=== PATIENT | male | born 1965 | race Caucasian/White ===

== ENCOUNTER 2019-07-24 06:55 | Day surgery (SDC) | payer BC ==
[~2019-07-24] VITALS: Ht 172.7 cm; Wt 95.6 kg
[2019-07-24 07:39] VITALS: BP 124/85; PULSE 74; TEMP 98.2
[2019-07-24] MEDS ORDERED: GLUCOPHAGE500 MG/TAB PO (07:43)
[2019-07-24] MEDS ORDERED: CANA300T PO (07:44)
[2019-07-24] MEDS ORDERED: PRINIVIL10 MG PO (07:44)
[2019-07-24] MEDS ORDERED: VYTORIN 10 MG-21 TAB PO (07:45)
[2019-07-24] MEDS ORDERED: TRULICITY1.5 MG/0.5 SQ (07:46)
[2019-07-24 08:40] VITALS: BP 114/80; PULSE 90; TEMP 98.2
--- NOTE | 2019-07-24 08:40 | NUR ---
PATIENT TO [facility] VIA CART ACCOMPANIED BY Bibi MARTINS RN. AMBULATES TO CHAIR WITH 1 PERSON ASSIST. MADE COMFORTABLE IN CHAIR. SITS HIGH FOWLERS, GIVEN WARM BLANKETS. VITAL SIGNS DONE, WNL. REINA NAUSEA OR DIZZINESS. OFFER FOR REFRESHMENT. WATER GIVEN. EXPLAINED POST PROCEDURE PROCESS, PT UNDERSTANDS.
[2019-07-24 08:45] VITALS: BP 121/78; PULSE 89
--- NOTE | 2019-07-24 08:45 | NUR ---
PATIENT CONTINUES TO DO WELL POST PROCEDURE. DENIES PAIN OR NAUSEA. CONTINUES TO SIP WATER.
[2019-07-24 09:00] VITALS: BP 115/82; PULSE 78
--- NOTE | 2019-07-24 09:00 | NUR ---
PATIENT SITTING COMFORTABLY IN CHAIR. DR SPEAKS WITH PATIENT AT BEDSIDE. DENIES NAUSEA OR PAIN.
[2019-07-24 09:15] VITALS: BP 114/78; PULSE 78
--- NOTE | 2019-07-24 09:15 | NUR ---
PATIENT CONTINUES TO DO WELL POST PROCEDURE, DENIES NAUSEA OR PAIN. SLIGHTLY SLEEPY. DISCHARGE INSTRUCTIONS GIVEN AND EXPLAINED. PATIENT SIGNS AND VERBALIZES UNDERSTANDING. DENIES QUESTIONS. IV TO RIGHT AC REMOVED.
== END 2019-07-24 09:28 | disposition home or self-care (01) ==
LOC: SDCO 06:55
DX: Z12.11 Encounter for screening for malignant neoplasm of colon (principal); E11.9 Type 2 diabetes mellitus without complications; I10 Essential (primary) hypertension
CPT/HCPCS: J2250; J2405; J3010; J7030